=== PATIENT | female | born 1955 | race Two or more races ===

== ENCOUNTER 2017-07-03 13:46 | Emergency (ER) | payer OTHER ==
[~2017-07-03] VITALS: Ht 160 cm; Wt 69.4 kg
[2017-07-03 13:46] VITALS: BP 146/90
[2017-07-03] MEDS ORDERED: HYDR-552 PO (13:59)
== END 2017-07-03 14:46 | disposition home or self-care (01) ==
LOC: ER 13:48
DX: M54.5 Low back pain (principal); G89.29 Other chronic pain
CPT/HCPCS: A4606; Z7502; Z7610